=== PATIENT | female | born 1985 ===

== ENCOUNTER 2018-06-18 14:22 | Outpatient (CLI) | payer OTHER ==
[2018-06-18] MEDS ORDERED: Gadobenate Dimeglumine 529 MG/1 ML (20ML VIAL) ONE (14:59)
== END 2018-06-18 14:23 | disposition home or self-care (01) ==
LOC: BICMRI 14:22
PROVIDERS: ATTEND Internal Medicine Rheumatology
DX: M06.4 Inflammatory polyarthropathy (principal); M79.641 Pain in right hand; M79.642 Pain in left hand; M67.441 Ganglion, right hand
CPT/HCPCS: A9579